=== PATIENT | male | born 1935 | race Two or more races ===

== ENCOUNTER 2025-01-18 21:43 | Inpatient (IN) | payer MEDICARE, MEDICAID ==
[~2025-01-18] VITALS: Ht 165.1 cm; Wt 59.0 kg
[~2025-01-18 21:43] MED LIST: LEVO250T59 PO
[2025-01-18] MEDS ORDERED: TAMS-12 PO (22:08)
[2025-01-18] MEDS ORDERED: MOXI3DRO LEFTEYE (22:08)
[2025-01-18] MEDS ORDERED: BISA10SU61 RC (22:08)
[2025-01-18] MEDS ORDERED: LEVE250T2 PO (22:08)
[2025-01-18] MEDS ORDERED: LORA-259 PO (22:08)
[2025-01-18] MEDS ORDERED: OXYC-128 PO (22:08)
[2025-01-18] MEDS ORDERED: HYDR-4075 PO (22:08)
[2025-01-18] MEDS ORDERED: ONDA-97 PO (22:08)
[2025-01-18] MEDS ORDERED: ENOX40DI SQ (22:08)
[2025-01-18] MEDS ORDERED: PRED5DRO24 LEFTEYE (22:08)
[2025-01-18 22:47] LABS: APPEARANCE,URINE CLEAR (CLEAR); BLOOD, URINE NEGATIVE Ery/uL (NEGATIVE); LEUKOCYTE ESTERASE ,URINE NEGATIVE (NEGATIVE); NITRITE, URINE NEGATIVE (NEGATIVE); UGLUCOSE NEGATIVE (NEGATIVE)
[2025-01-18] MEDS: VANCOMYCIN HCL 1.25 GM in IV D5W 260 ML IV ONE (23:38)
[2025-01-18] MEDS: ONDANSETRON HCL/PF 4 MG/2 ML VIAL IV ONE (23:38)
[2025-01-18] MEDS: CEFTRIAXONE 1 G in IV D5W 50 ML IV ONE (23:38)
[2025-01-18] MEDS: MORPHINE SULFATE INJ 2 MG/ML DISP.SYRIN IV ONE (23:38)
[2025-01-18] MEDS ORDERED: oxyCODONE IR immediate release 5 MG TABLET ONE (23:39)
[2025-01-18] MEDS ORDERED: CEPHALEXIN MONOHYDRATE 500 MG CAPSULE PO ONE (23:40)
[2025-01-18] MEDS ORDERED: DOXYCYCLINE HYCLATE (100 MG) 100 MG TABLET ONE (23:40)
[2025-01-19] MEDS: DOXYCYCLINE HYCLATE (100 MG) 100 MG TABLET PO ONE (00:03)
[2025-01-19] MEDS: oxyCODONE IR immediate release 5 MG TABLET PO STA (00:03)
[2025-01-19] MEDS: CEPHALEXIN MONOHYDRATE 500 MG CAPSULE PO ONE (00:03)
[2025-01-19] MEDS ORDERED: DOXY-326 PO (00:27)
[2025-01-19] MEDS ORDERED: CEPH-570 PO (00:27)
[2025-01-19] MEDS ORDERED: MAGNESIUM HYDROXIDE 30 ML UDC PO PRN (07:00)
[2025-01-19] MEDS ORDERED: DOSING PER PHARMACY-ZOSYN IV 1 EA EA XX PRN (07:00)
[2025-01-19] MEDS ORDERED: OLANZAPINE 5 MG TABLET PO SCH (07:00)
[2025-01-19] MEDS ORDERED: ONDANSETRON HCL/PF 4 MG/2 ML VIAL IVP PRN (07:00)
[2025-01-19] MEDS ORDERED: ACETAMINOPHEN 325 MG TABLET PO PRN (07:00)
[2025-01-19] MEDS ORDERED: MAG HYDROX/AL HYDROX/SIMETH 30 ML UDC PO PRN (07:00)
[2025-01-19] MEDS ORDERED: OLANZAPINE 10 MG VIAL IM ONE (07:06)
[2025-01-19] MEDS: OLANZAPINE 10 MG VIAL IM ONE (07:09)
[2025-01-19 08:10] LABS: PLATELET COUNT (AUTO) 174 K/uL (150-450); RED BLOOD CELL COUNT(AUTO) 4.53 MIL/uL (4.5-6.0); RED CELL DISTRIBUTION WIDTH 14.4 % (11.5-15.0); WHITE BLOOD COUNT (AUTO) 4.6 K/uL (4.3-11.0)
[2025-01-19 08:22] LABS: ASPARTATE AMINOTRANSFERASE 21.0 U/L (15-37); CALCIUM, SERUM 8.7 mg/dL (8.5-10.1); CREATININE 0.8 mg/dL (0.6-1.3); SODIUM SERUM 142.0 mmol/L (136-145); TOTAL PROTEIN, SERUM 7.4 g/dL (6.4-8.2); UREA NITROGEN, BLOOD 14.0 mg/dL (7-18)
[2025-01-19] MEDS ORDERED: LEVE500T20 PO (08:35)
[2025-01-19] MEDS ORDERED: ZOSYN IVPB 3.375 G in IV D5W 50ml IV SCH (10:00)
[2025-01-19 12:27] VITALS: BP 130/77; TEMP 98; O2SAT 98
[2025-01-19] MEDS: POTASSIUM CL. PREMIX PERIPHER. 50 ML IV SCH (14:34)
[2025-01-19 16:00] VITALS: BP 126/64; TEMP 97.3; O2SAT 98
[2025-01-19] MEDS: ZOSYN IVPB 3.375 G in IV D5W 50ml IV SCH (19:57)
[2025-01-19 20:00] VITALS: BP 146/88; TEMP 97.3; O2SAT 99
[2025-01-20 08:00] VITALS: BP 128/74; TEMP 97.4; O2SAT 95
[2025-01-20] MEDS: IV NS 0.9% 1,000 ML IV PRN (10:21)
[2025-01-20 16:00] VITALS: BP 117/60; TEMP 97.7; O2SAT 100
[2025-01-20 20:00] VITALS: BP 132/77; TEMP 97.9; O2SAT 96
[2025-01-21 08:00] VITALS: BP 141/82; TEMP 98.4; O2SAT 95
[2025-01-21 16:00] VITALS: BP 120/70; TEMP 98.1; O2SAT 95
[2025-01-21 20:00] VITALS: BP 117/71; TEMP 98.2; TEMP 98.3; O2SAT 95
[2025-01-22 06:55] LABS: ASPARTATE AMINOTRANSFERASE 19.0 U/L (15-37); TOTAL PROTEIN, SERUM 6.3 g/dL (6.4-8.2)
[2025-01-22 08:00] VITALS: BP 138/76; TEMP 98.1; O2SAT 95
[2025-01-22 16:00] VITALS: BP 129/62; TEMP 98.1; O2SAT 93
[2025-01-22 20:00] VITALS: BP 129/100; TEMP 97.9; O2SAT 96
[2025-01-23 08:00] VITALS: BP 142/81; TEMP 98.7; O2SAT 95
[2025-01-23] MEDS: PIPERACILLIN /TAZOBACTAM 3.375 G in IV D5W 100 ML IV SCH (09:24)
== END 2025-01-23 16:45 | DRG 445 ==
LOC: ER 22:01 → MED 01-19 06:23
DX: K81.0 Acute cholecystitis (principal); N39.0 Urinary tract infection, site not specified; F03.90 Unspecified dementia, unspecified severity, without behavioral disturbance, psychotic disturbance, mood disturbance, and anxiety; N45.1 Epididymitis; Z79.02 Long term (current) use of antithrombotics/antiplatelets; G40.909 Epilepsy, unspecified, not intractable, without status epilepticus; I10 Essential (primary) hypertension; N40.1 Benign prostatic hyperplasia with lower urinary tract symptoms; R33.9 Retention of urine, unspecified; R10.9 Unspecified abdominal pain; H54.61 Unqualified visual loss, right eye, normal vision left eye; I67.2 Cerebral atherosclerosis; R19.09 Other intra-abdominal and pelvic swelling, mass and lump; R27.8 Other lack of coordination; Z79.899 Other long term (current) drug therapy; Z86.79 Personal history of other diseases of the circulatory system; K83.8 Other specified diseases of biliary tract
CPT/HCPCS: 36415; 76705-TC; 76870-TC; 80048-TC; 80076-TC; 85025-TC; 87081-TC; A4223; G0378; J0696; J2543; J3480; J3490; J7030; J7060